=== PATIENT | female | born 1960 | race Caucasian/White ===

== ENCOUNTER → 2019-01-25 | Outpatient (REF) ==
--- NOTE | 2019-01-26 02:27 | REP ---
Clinical: Pain and disability. Technique: AP, lateral, coned-down views of the lumbosacral spine. Findings: Alignment and lordosis maintained. Generalized osteopenia is appreciated. Focal moderate degenerative disc osteophyte complex at L5-S1 and L4-5 includes endplate sclerosis with associated disc space narrowing. Remainder examination appears relatively normal for age. Impression: Moderate degenerative spondylosis at L5-S1 and L4-5. Electronically Signed by Efren Washburn MD 01/26/2019 02:19 A
== END ==
LOC: M SMT 13:57
PROVIDERS: ATTEND Internal Medicine
DX: M47.897 Other spondylosis, lumbosacral region (principal); M47.896 Other spondylosis, lumbar region